=== PATIENT | male | born 1995 | race Caucasian/White ===

== ENCOUNTER 2017-12-02 15:04 | Emergency (ER) | payer SELFPAY ==
[2017-12-02] MEDS: LIDOCAINE/MYLANTA 40 ML BTL PO (16:30)
== END 2017-12-02 16:58 | disposition home or self-care (01) ==
LOC: E/R 15:04
DX: R07.0 Pain in throat (principal); R40.2142 Coma scale, eyes open, spontaneous, at arrival to emergency department; R40.2252 Coma scale, best verbal response, oriented, at arrival to emergency department; R40.2352 Coma scale, best motor response, localizes pain, at arrival to emergency department
CPT/HCPCS: 99283

== ENCOUNTER 2018-12-04 16:00 | Emergency (ER) | payer MEDICAID | END 2018-12-04 19:46 | disposition home or self-care (01) | LOC: FTE 16:00 | DX: M25.522 Pain in left elbow (principal); M54.9 Dorsalgia, unspecified; M54.2 Cervicalgia | CPT/HCPCS: 99282; Z7502 ==